=== PATIENT | male | born 1980 | race Caucasian/White ===

== ENCOUNTER → 2023-03-30 | Outpatient (CLI) | payer OTHER ==
--- NOTE | 2023-03-30 16:35 | XR ---
EXAMINATION TYPE: XR cervical spine limited DATE OF EXAM: 03/30/2023 COMPARISON: NONE HISTORY: Pain TECHNIQUE: 3 views are submitted. FINDINGS: The odontoid is intact. There are no compression deformities. The prevertebral soft tissue structur es are within normal limits. There is moderate to severe degenerative disc disease C5-C6. Mild degen erative disc disease at C6-C7. Spurring anteriorly at both levels with facet arthropathy. IMPRESSION: 1. Multilevel degenerative disc disease most marked at C5-C6 with facet arthropathy..
--- NOTE | 2023-03-30 16:37 | XR ---
EXAMINATION TYPE: XR thoracic spine 2V DATE OF EXAM: 03/30/2023 COMPARISON: NONE HISTORY: Pain TECHNIQUE: 3 views submitted FINDINGS: Alignment is anatomic. There is no compression deformities. Vertebral body height and disc interspa te are maintained. Scoliotic curvature of the spine with multilevel mild to moderate degenerative d isc disease. IMPRESSION: 1. Scoliotic curvature of the spine with multilevel mild to moderate degenerative disc disease.
== END | disposition home or self-care (01) ==
LOC: RADXRMAIN 14:33
PROVIDERS: ATTEND Nurse Practitioner Family
DX: M47.812 Spondylosis without myelopathy or radiculopathy, cervical region (principal); M51.34 Other intervertebral disc degeneration, thoracic region; M41.34 Thoracogenic scoliosis, thoracic region
CPT/HCPCS: 72040; 72070

== ENCOUNTER → 2024-12-06 | Outpatient (CLI) | payer OTHER ==
[2024-12-06 15:04] LABS: HCT 48.2 % (39.6-50.0); HGB 16.7 g/dL (13.0-17.0); MCH 35.5 pg (27.0-32.0); MCHC 34.6 g/dL (32.0-37.0); MCV 102.6 FL (80.0-97.0); NRBC Per 100 WBC 0 X 10*3/uL (0.00-0.01); Platelet Count 191 X 10*3/uL (140-440); RDW 12.8 % (11.5-14.5); WBC 13.14 X 10*3/uL (4.50-10.00)
== END | disposition home or self-care (01) ==
LOC: LABPAT 09:21
PROVIDERS: ATTEND Surgery
DX: Z01.812 Encounter for preprocedural laboratory examination (principal); K40.90 Unilateral inguinal hernia, without obstruction or gangrene, not specified as recurrent
CPT/HCPCS: 85027

== ENCOUNTER 2024-12-09 06:58 | Day surgery (SDC) | payer OTHER ==
[2024-12-05 09:05] VITALS: BMI 25.1
--- NOTE | 2024-12-09 07:39 | P.GSHP ---
History of Present Illness H&P Date: 12/09/24 Chief Complaint: Left inguinal hernia 44-year-old male here today for elective repair left inguinal hernia. Patient with history of previous right inguinal hernia repaired open with mesh in 2018. Patient says the hernia is increasing in size and more uncomfortable. Patient is a smoker although stated that he would be quitting for the surgery. Past Medical History Past Medical History: No Reported History Additional Past Medical History / Comment(s): INGUINAL HERNIA History of Any Multi-Drug Resistant Organisms: None Reported Past Surgical History: Hernia Repair Past Anesthesia/Blood Transfusion Reactions: No Reported Reaction Smoking Status: Current every day smoker - Past Family History Father Family Medical History: Cancer Medications and Allergies Home Medications Medication Instructions Recorded Confirmed Type Ibuprofen [Motrin Ib] 600 mg PO Q8H PRN 12/05/24 12/09/24 History Methylphenidate HCl [Concerta] 36 mg PO BID 12/05/24 12/09/24 History Allergies Allergy/AdvReac Type Severity Reaction Status Date / Time No Known Allergies Allergy Verified 12/09/24 07:19 Surgical - Exam Vital Signs Temp Pulse Resp BP Pulse Ox 98.7 F 83 14 125/87 94 L 12/09/24 07:20 12/09/24 07:20 12/09/24 07:20 12/09/24 07:20 12/09/24 07:20 Physical exam: General: Well-developed, well-nourished HEENT: Normocephalic, sclerae nonicteric Abdomen: Nontender, nondistended, reducible small to medium sized hernia slightly lateral position Extremities: No edema Neuro: Alert and oriented Assessment and Plan (1) Left inguinal hernia Narrative/Plan: Will proceed with laparoscopic da Nia assisted repair left inguinal hernia with mesh, possible open, possible bilateral. Risks of bleeding, infection, recurrence, chronic pain, bladder and bowel injury, numbness, conversion to an open procedure, scarring, and anesthesia related complications were discussed. The correlation between hernia recurrence, obesity and smoking were reviewed in detail. The patient understands and wishes to proceed. Current Visit: Yes Status: Acute Code(s): K40.90 - UNIL INGUINAL HERNIA, W/O OBST OR GANGR, NOT SPCF RECUR SNOMED Code(s): 317573913
[2024-12-09] MEDS: IV FLUID CONTINUATION 1,000 ML IV ONE ×2 (07:48→11:00)
[2024-12-09] MEDS: LACTATED RINGERS 1,000 ML IV SCH (07:49)
[2024-12-09] MEDS: ACETAMINOPHEN TAB 500 MG TAB PO PRN (07:50)
[2024-12-09] MEDS: HEPARIN SODIUM,PORCINE 5,000 UNIT/ML 1 ML VIAL SQ PRN (07:52)
[2024-12-09] MEDS: ONDANSETRON 4 MG/2 ML VIAL IVP ONE (07:52)
[2024-12-09] MEDS: DEXAMETHASONE SOD PHOSPHATE 4 MG/ML 1 ML VIAL IV ONE (07:52)
[2024-12-09] MEDS: IPRATROPIUM-ALBUTEROL 3 ML NEB INHALATION STA (08:09)
[2024-12-09] MEDS: TAMSULOSIN 0.4 MG CAP.ER.24H PO STA (08:34)
[2024-12-09] MEDS ORDERED: fentaNYL (PF) 50 MCG/ML 2 ML AMP ONE (08:54)
[2024-12-09] MEDS ORDERED: PROPOFOL 10 MG/ML 20 ML VIAL IV ONE (08:54)
[2024-12-09] MEDS ORDERED: MIDAZOLAM 2 MG/2 ML VIAL ONE (08:54)
[2024-12-09] MEDS ORDERED: ROCURONIUM 10 MG/ML (5 ML VIAL) IV ONE (08:54)
[2024-12-09] MEDS ORDERED: SUCCINYLCHOLINE CHLORIDE 200 MG/10 ML VIAL IV ONE (08:54)
[2024-12-09] MEDS ORDERED: NEOSTIGMINE 1 MG/ML 10 ML VIAL ONE (08:54)
[2024-12-09] MEDS ORDERED: LIDOCAINE 4% LTA KIT (4 ML) TOPICAL ONE (08:54)
[2024-12-09] MEDS ORDERED: GLYCOPYRROLATE 0.2 MG/ML 2 ML VIAL ONE (08:54)
[2024-12-09] MEDS ORDERED: KETOROLAC 15 MG/ML 1 ML VIAL ONE (08:54)
[2024-12-09] MEDS ORDERED: LIDOCAINE 1% INJ 10MG/ML (20 ML MDV) ONE (08:54)
[2024-12-09] MEDS ORDERED: KETAMINE HCL IN 0.9 % NACL 50 MG/5 ML SYRINGE ONE (08:54)
[2024-12-09] MEDS: BUPIVACAINE (PF) 0.25% 30 ML VIAL SQ ONE (09:19)
[2024-12-09] MEDS: LACTATED RINGERS 1,000 ML IV ONE (09:42)
[2024-12-09 10:32] VITALS: TEMP 98.2
--- NOTE | 2024-12-09 10:46 | P.OP ---
Date of Procedure: 12/09/24 Procedure(s) Performed: PREOPERATIVE DIAGNOSIS: Left inguinal hernia POSTOPERATIVE DIAGNOSIS: Direct left inguinal hernia PROCEDURE: Laparoscopic da Nia assisted repair left inguinal hernia with mesh SURGEON: Dr. Richards ANESTHESIA: General EBL: 5 cc OPERATIVE PROCEDURE DETAILS: Patient was placed in the operating table in the supine position. The patient was placed under general anesthesia. The abdomen was prepped and draped in usual sterile fashion. A small curvilinear supraumbilical incision was made. The fascia was retracted anteriorly with Toro forceps. The Veress needle was inserted. The saline drop test was normal. Insufflation took place to 15 mmHg. An 8 mm trocar was placed into the peritoneal cavity. 2 additional 8 mm trochars were placed in the right upper quadrant and left upper quadrant under visualization. The robotic arms were then brought in and docked into place. The fenestrated bipolar was used in the left arm and the laparoscopic ronit was utilized in the right arm. A 30 8 mm scope was used in the up position. The peritoneal cavity was inspected. Preoperatively the patient's hernia seem to be a bit lateral. We inspected the abdominal wall carefully. There was no evidence of spigelian hernia or lateral lower ventral hernia. There was a defect in the direct space. The peritoneum was incised in a horizontal fashion cephalad to the internal inguinal ring. Following that careful dissection of the preperitoneal space took place. This took place using both electrocautery, sharp dissection but primarily blunt dissection. Visualization of the pubic tubercle and Miko's ligament took place medially. Full dissection took place laterally as well. The direct hernia sac was fully dissected. There was no visible femoral hernia. There was no visible cord lipoma penetrating through the internal inguinal ring. Once we had adequate space the [id number] Progrip mesh was advanced into the preperitoneal space and flattened out appropriately to cover all potential hernia sites. The mesh was sutured medially to the folding edge of Miko's ligament. This was performed using a absorbable 3-0 V-Loc suture. The peritoneal defect was then closed using a absorbable 2-0 VLok suture. The hernia sac was incorporated into the peritoneal closure to help prevent future recurrence. The pneumoperitoneum was then evacuated. The skin of all 3 sites was closed using a 4-0 Monocryl stitch. Skin glue was then applied. TYPE OF MESH USED: 15 cm ProGrip LOCATION OF MESH: Preperitoneal FIXATION: 3-0 absorbable V-Loc PREOPERATIVE DISCUSSION ON SMOKING CESSASTION: Yes PREOPERATIVE DISCUSSION ON MORBID OBESITY: Yes PREOPERATIVE DISCUSSION ON APPROPRIATE USE OF NARCOTIC USE: Yes PREOPERATIVE EDUCATION: Multi Modal, Smoking Cessation and Weight Loss with BMI over 35. DISPOSITION: Stable to recovery room
[2024-12-09] MEDS: HYDROmorphone 0.5 MG/0.5 ML SYRINGE IVP PRN (10:48)
[2024-12-09 11:59] VITALS: RESP 18
[2024-12-09 12:15] VITALS: BP 117/78; PULSE 89
[2024-12-09] MEDS ORDERED: IBUPROFEN 600 MG TAB PO SCH (13:45)
[2024-12-09] MEDS ORDERED: ACETAMINOPHEN TAB 325 MG TAB PO SCH (16:45)
== END 2024-12-09 13:01 ==
LOC: OR 06:58
PROVIDERS: ATTEND Surgery
DX: K40.90 Unilateral inguinal hernia, without obstruction or gangrene, not specified as recurrent (principal); F90.9 Attention-deficit hyperactivity disorder, unspecified type; F17.210 Nicotine dependence, cigarettes, uncomplicated; Z79.899 Other long term (current) drug therapy
CPT/HCPCS: 49650; S2900